=== PATIENT | male | born 1990 | race African-American/Black ===

== ENCOUNTER 2022-01-14 22:00 | Emergency (ER) | payer MEDICAID ==
[~2022-01-14] VITALS: Ht 177.8 cm; Wt 77.1 kg
[2022-01-14 22:32] VITALS: BP_SYST 136
[2022-01-14] MEDS ORDERED: NOR10 PO (22:46)
[2022-01-15 01:09] VITALS: BP_SYST 125
[2022-01-15] MEDS ORDERED: P-EP-92 PO (02:25)
[2022-01-15] MEDS ORDERED: AMOX-423 PO (02:25)
[2022-01-15] MEDS ORDERED: IBUP-1969 PO (02:25)
[2022-01-15] MEDS ORDERED: LORATADINE 10 MG TABLET PO ONE (02:30)
[2022-01-15] MEDS ORDERED: AMOXICILLIN/CLAVULANATE POTASSIUM 500 MG TABLET PO ONE (02:30)
[2022-01-15] MEDS ORDERED: IBUPROFEN 600 MG TABLET PO ONE (02:30)
== END 2022-01-15 02:50 | disposition home or self-care (01) ==
LOC: SED 22:00
DX: J01.00 Acute maxillary sinusitis, unspecified (principal); R50.9 Fever, unspecified; R09.81 Nasal congestion; R53.81 Other malaise; Z79.899 Other long term (current) drug therapy; Z20.822 Contact with and (suspected) exposure to COVID-19
CPT/HCPCS: 36415; 99283